=== PATIENT | female | born 1950 | race Asian ===

== ENCOUNTER 2016-12-23 08:14 | Emergency (ER) | payer MEDICARE, OTHER ==
[~2016-12-23] VITALS: Ht 152.4 cm; Wt 59.0 kg
[~2016-12-23 08:14] MED LIST: CALC-895 PO; GLIP5 PO; METF500T4 PO; SIMV-261 PO; TELM40 PO
[2016-12-23] MEDS ORDERED: ASPI-1093 PO (08:31)
[2016-12-23 09:09] VITALS: BP 168/76
[2016-12-23] MEDS ORDERED: CYCLOBENZAPRINE HCL 10 MG TABLET PO ONE (09:15)
[2016-12-23] MEDS ORDERED: IBUPROFEN 600 MG TABLET PO ONE (09:15)
[2016-12-25 09:50] LABS: GLUCOSE,POINT OF CARE 152 MG/DL (70-110)
== END 2016-12-23 09:33 | disposition home or self-care (01) ==
LOC: EDBD 08:15 → EMS 08:15
DX: M54.5 Low back pain (principal); E11.9 Type 2 diabetes mellitus without complications; I10 Essential (primary) hypertension; E78.00 Pure hypercholesterolemia, unspecified
CPT/HCPCS: 82962; 99283

== ENCOUNTER → 2019-01-09 | Outpatient (CLI) | payer MEDICARE, OTHER ==
[~2019-01-09] MED LIST changes: +ASPI-1182 PO; +METF-960 PO; -METF500T4 PO
[2019-01-09 12:56] LABS: HEMOGLOBIN A1C 10.3 % (4.5-6.2)
[2019-01-09 13:00] LABS: ALBUMIN 3.9 g/dL (3.4-5.0); BILIRUBIN,TOTAL 0.6 mg/dL (0.1-1.0); CALCIUM, TOTAL 9.6 mg/dL (8.8-10.5); CHOL/HDL RATIO 5.7 (3.9-5.7); CREATININE 1.19 mg/dL (0.60-1.30); POTASSIUM 4.2 mmol/L (3.5-5.1); TOTAL PROTEIN, SERUM 8.5 g/dL (6.4-8.2)
== END | disposition home or self-care (01) ==
LOC: LABPV 11:39
PROVIDERS: ATTEND Internal Medicine Infectious Disease
DX: E78.5 Hyperlipidemia, unspecified (principal); E11.69 Type 2 diabetes mellitus with other specified complication; I10 Essential (primary) hypertension; E78.00 Pure hypercholesterolemia, unspecified
CPT/HCPCS: 82043; 82570; 83036